=== PATIENT | female | born 1935 | race Asian ===

== ENCOUNTER → 2017-08-08 | Outpatient (CLI) | payer OTHER ==
[~2017-08-08] MED LIST: ASPI81TA42 PO; ATOR10TA84 PO; CALC500T62 PO; CHOL10002 PO; METF500T7 PO; METO-408 PO; MULT1TAB70 PO; OLME40 PO; OMEP20CA10 PO
== END | disposition home or self-care (01) ==
LOC: RADPV 09:38
PROVIDERS: ATTEND Internal Medicine
DX: M65.4 Radial styloid tenosynovitis [de Quervain] (principal)

== ENCOUNTER → 2017-10-27 | Outpatient (CLI) | payer OTHER | END | disposition home or self-care (01) | LOC: RADPV 15:16 | PROVIDERS: ATTEND Internal Medicine | DX: R91.8 Other nonspecific abnormal finding of lung field (principal); I51.7 Cardiomegaly; I70.0 Atherosclerosis of aorta | CPT/HCPCS: 71046 ==